=== PATIENT | female | born 1995 | race Caucasian/White ===

== ENCOUNTER → 2018-01-01 | Outpatient (CLI) | payer OTHER ==
[~2018-01-01] MED LIST: ACET325 PO; ALBU90I INH; AMOX500 PO; AZIT250; AZIT250 PO; Albenza200 MG PT; Augmentin 875-1 EACH PO; BIRTH CONTROL; BUPR100; BUPRENORPHINE HC2 MG SL; Bactrim Ds Tab1 EACH PO; CEPH250A PO; CEPH250SUA PO; CLIN300 PO; CODACE30 PO; CYCL10 PO; GUAIASORB DM L118 ML PO; HYDACE5 PO; HYDACE5325 PO; HYDHCL25 PO; IBUP400 PO; IBUP600 PO; IBUP800; IBUP800 PO; LOPE2C PO; MEDR150I IM; MULTIPLE VITAMIN; MULVITA PO; MUPI2TO TOP; NAPR500 PO; NORETHTP TOP; Naprosyn500 MG PO; ONDA4 PO; ONDA4ODT MM; OXYACE5T PO; PENVK250 PO; PERM5TC TOP; PRED10 PO; PRED15SY PO; PROCODE120 PO; PROM25 PO; PROM6.25SY PO; Pyridium200 MG PO; RXCEPH250S PO; RXHYDACE PO; SULTRIDS PO; TRAM50 PO; TRAZ50 PO; Triamcinolone A15 GM TOP; Zofran Odt4 MG SL; [UNRECOGNIZED DRUG - REMARK]
[2018-01-01 13:15] LABS: U Amphetamine Screen Not Detected; U Barbituate Screen Not Detected; U Benzodiazapine Screen Not Detected; U Buprenorphine Screen DETECTED; U Cannabinoids Screen Not Detected; U Cocaine Screen Not Detected; U Methadone Screen Not Detected; U Methamphetamine Screen Not Detected; U Opiates Screen DETECTED; U Oxycodone Screen Not Detected; U Phencyclidine Screen Not Detected; U Propoxyphene Screen Not Detected
== END ==
LOC: LAB 11:27 → LAB SHORT 11:27
PROVIDERS: Obstetrics & Gynecology
DX: Z34.82 Encounter for supervision of other normal pregnancy, second trimester (principal)

== ENCOUNTER → 2018-04-10 | Outpatient (CLI) | payer OTHER ==
[2018-04-15 03:10] LABS: CHLAMYDIA TRACHOMATIS, NAA Negative (Negative); NEISSERIA GONORRHOEAE, NAA Negative (Negative)
== END ==
LOC: LAB 17:49 → LAB SHORT 17:49
PROVIDERS: Registered Nurse Community Health
DX: Z34.83 Encounter for supervision of other normal pregnancy, third trimester (principal); Z20.2 Contact with and (suspected) exposure to infections with a predominantly sexual mode of transmission
CPT/HCPCS: 87081; 87491; 87591; 87653

== ENCOUNTER 2018-07-24 02:43 | Emergency (ER) | payer OTHER ==
[~2018-07-24] VITALS: Ht 170.2 cm; Wt 49.9 kg
== END 2018-07-24 03:30 | disposition home or self-care (01) ==
LOC: ER 02:43
DX: Z00.8 Encounter for other general examination (principal); Z88.8 Allergy status to other drugs, medicaments and biological substances; Z87.891 Personal history of nicotine dependence
CPT/HCPCS: 99282

== ENCOUNTER 2018-10-07 21:50 | Emergency (ER) | payer OTHER ==
[~2018-10-07] VITALS: Ht 170.2 cm; Wt 52.2 kg
[2018-10-07] MEDS ORDERED: Cleocin HCl150 MG PO (22:37)
[2018-10-07] MEDS ORDERED: Mupirocin22 GM TOP (22:37)
== END 2018-10-07 23:02 | disposition home or self-care (01) ==
LOC: ER 21:50
DX: L03.316 Cellulitis of umbilicus (principal); B95.62 Methicillin resistant Staphylococcus aureus infection as the cause of diseases classified elsewhere; J34.0 Abscess, furuncle and carbuncle of nose; H60.13 Cellulitis of external ear, bilateral; L03.116 Cellulitis of left lower limb; L03.115 Cellulitis of right lower limb; L03.114 Cellulitis of left upper limb; L03.113 Cellulitis of right upper limb; Z79.899 Other long term (current) drug therapy; Z88.8 Allergy status to other drugs, medicaments and biological substances; Z87.891 Personal history of nicotine dependence
CPT/HCPCS: 99283

== ENCOUNTER 2019-02-24 09:53 | Emergency (ER) | payer OTHER ==
[~2019-02-24] VITALS: Ht 170.2 cm; Wt 49.9 kg
[~2019-02-24 09:53] MED LIST changes: +Cleocin HCl150 MG PO; +Mupirocin22 GM TOP
[2019-02-24] MEDS ORDERED: Bactrim Ds Tab1 EACH PO (10:38)
== END 2019-02-24 10:39 | disposition home or self-care (01) ==
LOC: ER 09:53
DX: L02.411 Cutaneous abscess of right axilla (principal); A49.02 Methicillin resistant Staphylococcus aureus infection, unspecified site; M41.9 Scoliosis, unspecified; F17.210 Nicotine dependence, cigarettes, uncomplicated; Z91.048 Other nonmedicinal substance allergy status
CPT/HCPCS: 99282

== ENCOUNTER → 2019-09-03 | Outpatient (CLI) | payer OTHER | LOC: LAB SHORT 12:10 → LAB EV 12:10 | DX: L03.211 Cellulitis of face (principal) | CPT/HCPCS: 87070; 87077; 87147; 87186; 87205 ==

== ENCOUNTER 2020-06-10 22:22 | Emergency (ER) | payer OTHER ==
[~2020-06-10] VITALS: Ht 172.7 cm; Wt 49.9 kg
[2020-06-11 01:58] LABS: Source, Urine Clean Catch
[2020-06-11 02:01] LABS: Appearance, Urine Hazy (Clear); Bilirubin, Urine Neg (Neg); Blood, Urine 1+ (Neg); Color, Urine Yellow (P-Yellow); Glucose Qualitative, Urine Neg (Neg); Ketones, Urine 2+ (Neg); Leukocyte Esterase, Urine 3+ (Neg); Nitrite, Urine Neg (Neg); Protein, Urine 2+ (Neg); Specific Gravity, Urine 1.025 (1.003-1.022); Urobilinogen, Urine 1+ (Normal)
[2020-06-11 02:08] LABS: Amorphous Light (0-Heavy); Bacteria Many /hpf; Mucus Light (0-Heavy); Red Blood Cells, Urine 0-2 /hpf (0-2); Squamous Epithelial Cells Many /hpf (Few); White Blood Cells, Urine 50-100 /hpf (0-5)
[2020-06-11 02:20] LABS: BASOPHILS ABSOLUTE AUTO 0.04 K/mm3 (0.00-0.23); BASOPHILS PERCENT AUTO 0 % (0-2); EOSINOPHILS ABSOLUTE AUTO 0.05 K/mm3 (0.00-0.68); EOSINOPHILS PERCENT AUTO 0 % (0-6); Hematocrit 40.4 % (33.0-51.0); Hemoglobin 13.2 g/dL (11.5-16.0); IMMATURE GRAN ABSOLUTE AUTO 0.03 K/mm3 (0.00-0.10); IMMATURE GRAN PERCENT AUTO 0 % (0-1); LYMPHOCYTES ABSOLUTE AUTO 1.87 K/mm3 (0.84-5.20); LYMPHOCYTES PERCENT AUTO 16 % (21-46); MONOCYTES ABSOLUTE AUTO 1.13 K/mm3 (0.16-1.47); MONOCYTES PERCENT AUTO 10 % (4-13); Mean Corpuscular HGB Conc 32.7 g/dL (31.5-36.5); Mean Corpuscular Volume 86 fL (80-100); Mean Platelet Volume 9.5 fL (9.1-12.4); NEUTROPHILS ABSOLUTE AUTO 8.74 K/mm3 (1.96-9.15); NEUTROPHILS PERCENT AUTO 74 % (41-73); Platelet Count 264 K/mm3 (150-400); RDW Coefficient Variation 12.7 % (11.7-14.2); RDW Standard Deviation 39.8 fL (35.1-46.3); Red Blood Cell Count 4.72 M/mm3 (3.80-5.20); White Blood Cell Count 11.86 K/mm3 (4.00-11.30)
[2020-06-11 02:39] LABS: Alanine Aminotransfer (ALT/SGP 19 U/L (12-78); Albumin, Blood 3.5 g/dL (3.4-5.0); Albumin/Globulin Ratio 0.9 (0.8-1.8); Alk Phos 92 U/L (50-136); Anion Gap 3 mmol/L (6-16); Aspartate Aminotrans (AST/SGOT 11 U/L (12-37); Bilirubin, Total 0.4 mg/dL (0.1-1.0); Blood Urea Nitrogen 13 mg/dL (8-24); Bun/Creatinine Ratio 21.1 (12.0-20.0); CO2, Blood 30 mmol/L (21-32); Calcium, Blood 8.9 mg/dL (8.5-10.1); Chloride, Blood 105 mmol/L (98-108); Creatinine, Blood 0.62 mg/dL (0.40-1.00); Globulin, Blood 3.9 g/dL (2.2-4.0); Glomerular Filtration Rate >60 (60-); Glucose, Blood 91 mg/dL (70-99); Sodium, Blood 138 mmol/L (136-145); Total Protein, Blood 7.4 g/dL (6.4-8.2)
[2020-06-11] MEDS ORDERED: AMOCLA875 PO (04:16)
[2020-06-11] MEDS ORDERED: Ofloxacin5 M1 BOTHEARS (04:16)
[2020-06-11 05:17] LABS: U Amphetamine Screen DETECTED; U Barbituate Screen Not Detected; U Benzodiazapine Screen Not Detected; U Buprenorphine Screen Not Detected; U Cannabinoids Screen Not Detected; U Cocaine Screen Not Detected; U Methadone Screen Not Detected; U Methamphetamine Screen DETECTED; U Opiates Screen DETECTED; U Oxycodone Screen Not Detected; U Phencyclidine Screen Not Detected; U Propoxyphene Screen Not Detected
[2020-06-11] MEDS ORDERED: Monodox100 MG PO (15:54)
== END 2020-06-11 06:38 | disposition home or self-care (01) ==
LOC: ER 22:22
PROVIDERS: Emergency Medicine
DX: H60.91 Unspecified otitis externa, right ear (principal); F17.210 Nicotine dependence, cigarettes, uncomplicated; Z91.041 Radiographic dye allergy status
CPT/HCPCS: 36415; 70487; 80053; 81001; 81025; 85025; 87086; 93005; 93010; 96374; 96375; 99284; J1200; J2060; J7030; Q9967

== ENCOUNTER 2021-01-29 15:27 | Emergency (ER) | payer OTHER ==
[~2021-01-29] VITALS: Ht 167.6 cm; Wt 47.6 kg
[~2021-01-29 15:27] MED LIST changes: +AMOCLA875 PO; +Monodox100 MG PO; +Ofloxacin5 M1 BOTHEARS
== END 2021-01-29 18:50 | disposition home or self-care (01) ==
LOC: ER 15:27
DX: T40.1X1A Poisoning by heroin, accidental (unintentional), initial encounter (principal); F17.200 Nicotine dependence, unspecified, uncomplicated; Z91.041 Radiographic dye allergy status; Z88.1 Allergy status to other antibiotic agents
CPT/HCPCS: 36415; 93005; 93010; 99285-25

== ENCOUNTER 2022-01-21 08:47 | Emergency (ER) | payer OTHER ==
[~2022-01-21] VITALS: Ht 175.3 cm; Wt 56.7 kg
[2022-01-21 10:36] LABS: BASOPHILS ABSOLUTE AUTO 0.03 K/mm3 (0.00-0.23); BASOPHILS PERCENT AUTO 0 % (0-2); EOSINOPHILS ABSOLUTE AUTO 0.09 K/mm3 (0.00-0.68); EOSINOPHILS PERCENT AUTO 1 % (0-6); Hematocrit 36.1 % (33.0-51.0); Hemoglobin 12.1 g/dL (11.5-16.0); IMMATURE GRAN ABSOLUTE AUTO 0.02 K/mm3 (0.00-0.10); IMMATURE GRAN PERCENT AUTO 0 % (0-1); LYMPHOCYTES ABSOLUTE AUTO 1.33 K/mm3 (0.84-5.20); LYMPHOCYTES PERCENT AUTO 16 % (21-46); MONOCYTES ABSOLUTE AUTO 0.64 K/mm3 (0.16-1.47); MONOCYTES PERCENT AUTO 8 % (4-13); Mean Corpuscular HGB 28.8 pg (26.0-34.0); Mean Corpuscular HGB Conc 33.5 g/dL (31.5-36.5); Mean Corpuscular Volume 86 fL (80-100); Mean Platelet Volume 9.1 fL (9.1-12.4); NEUTROPHILS ABSOLUTE AUTO 6.08 K/mm3 (1.96-9.15); NEUTROPHILS PERCENT AUTO 74 % (41-73); Platelet Count 243 K/mm3 (150-400); RDW Coefficient Variation 11.8 % (11.7-14.2); RDW Standard Deviation 36.9 fL (35.1-46.3); White Blood Cell Count 8.19 K/mm3 (4.00-11.30)
[2022-01-21 10:49] LABS: Source, Urine Clean Catch
[2022-01-21 10:53] LABS: Bilirubin, Urine Neg (Neg); Blood, Urine 4+ (Neg); Glucose Qualitative, Urine Neg (Neg); Ketones, Urine Neg (Neg); Leukocyte Esterase, Urine 2+ (Neg); Nitrite, Urine Neg (Neg); Protein, Urine Neg (Neg); Urobilinogen, Urine 1+ (Normal)
[2022-01-21 11:00] LABS: Albumin, Blood 3.4 g/dL (3.4-5.0); Bilirubin, Total 0.2 mg/dL (0.1-1.0); Bun/Creatinine Ratio 21.2 (12.0-20.0); Creatinine, Blood 0.61 mg/dL (0.40-1.00); Globulin, Blood 3.4 g/dL (2.2-4.0); Potassium, Blood 4.1 mmol/L (3.5-5.5); Total Protein, Blood 6.8 g/dL (6.4-8.2)
[2022-01-21 11:08] LABS: Appearance, Urine Clear (Clear); Color, Urine Yellow (P-Yellow)
[2022-01-21 11:10] LABS: Bacteria Many /hpf; Squamous Epithelial Cells Many /hpf (Few)
[2022-01-21 11:12] LABS: U Amphetamine Screen DETECTED; U Barbituate Screen Not Detected; U Benzodiazapine Screen Not Detected; U Buprenorphine Screen Not Detected; U Cannabinoids Screen Not Detected; U Cocaine Screen Not Detected; U Methadone Screen Not Detected; U Methamphetamine Screen DETECTED; U Opiates Screen DETECTED; U Oxycodone Screen Not Detected; U Phencyclidine Screen Not Detected; U Propoxyphene Screen Not Detected
== END 2022-01-21 11:30 | disposition left against medical advice (07) ==
LOC: ER 08:47
PROVIDERS: Family Medicine; Physician Assistant
DX: R10.2 Pelvic and perineal pain (principal); F17.210 Nicotine dependence, cigarettes, uncomplicated; Z53.21 Procedure and treatment not carried out due to patient leaving prior to being seen by health care provider
CPT/HCPCS: 36415; 80053; 81001; 83690; 84443; 84703; 85025; J1885